=== PATIENT | female | born 1990 | race American Indian/Alaskan Native ===

== ENCOUNTER 2018-08-14 18:37 | Emergency (ER) | payer OTHER ==
[2018-08-14 18:51] VITALS: BP 123/84
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
--- NOTE | 2018-08-14 19:51 | XRay Report ---
PROCEDURE: XR TIBIA FIBULA 2V LT TECHNIQUE: Tibia fibula AP and lateral views HISTORY: leg pain COMPARISONS: FINDINGS: No fracture identified. No dislocation seen. Joint spaces are within normal limits no evidence for ef fusion at the knee IMPRESSION: Negative no acute abnormality. This document is electronically signed by Brody Cavanaugh MD., Aug 14 2018 07:49:39 PM ET
--- NOTE | 2018-08-14 19:53 | XRay Report ---
PROCEDURE: XR ANKLE 3+V LT TECHNIQUE: Left ankle 3 views HISTORY: ankle pain COMPARISONS: FINDINGS: No fracture identified. No dislocation seen. Joint spaces are within normal limits. No radiopaque for eign bodies observed. IMPRESSION: Negative ankle series. This document is electronically signed by Brody Cavanaugh MD., Aug 14 2018 07:51:23 PM ET
[2018-08-14] MEDS ORDERED: TRIPLE ANTIBIOTIC TP ONE (19:54)
[2018-08-14] MEDS ORDERED: IBUPROFEN PO ONE (19:54)
--- NOTE | 2018-08-14 19:59 | Emergency Department Report ---
HPI - General Chief Complaint: Extremity Injury, Lower Time Seen by Provider: 08/14/18 18:49 - HPI HPI: This is a 28-year-old female who presented to ED complaining of abrasions to her knees and bilateral lower leg pain after she sustained a ground-level fall last night. Patient denies hitting her head or loss of consciousness after incident. Presents that she was to get up after the fall. Patient states it is worsened with palpating her lower legs. Patient describes pain as throbbing and aching in nature. ED Past Medical Hx - Past Medical History Previous Medical History?: No - Surgical History Past Surgical History?: No - Social History Smoking Status: Current Every Day Smoker Substance Use Type: Alcohol - Medications Home Medications: Home Medications Medication Instructions Recorded Confirmed Last Taken Type Ibuprofen [Motrin 800 MG tab] 800 mg PO TID #30 tablet 08/14/18 Unknown Rx ED Review of Systems ROS: Stated complaint: BILITERAL LEG/KNEE PAIN Other details as noted in HPI Comment: All other systems reviewed and negative Physical Exam - Physical Exam Vital Signs: Vital Signs 08/14/18 18:49 Temperature 98.2 F Pulse Rate 81 Respiratory 18 Rate Blood Pressure 123/84 [Right] O2 Sat by Pulse 100 Oximetry Physical Exam: GENERAL: Alert and oriented x3, no apparent distress, Normal Gait, atraumatic. HEAD: Head is normocephalic and a-traumatic. NECK: Supple. Non edematous, No lymphadenopathy or thyromegaly. No C-spine tenderness, full range of motion EXTREMITIES/MUSCULOSKELETAL: No cyanosis, clubbing, rash, lesions or edema. Mild knee abrasion, nonbleeding.Full ROM bilaterally. Pedal Pulses 2+ bilaterally. LE 5+ strength bilaterally, NEUROLOGIC: The patient is cooperative with no focal neurologic deficits. SKIN: Warm and dry, No lesions, No ulceration or induration present. ED Course Vital Signs 08/14/18 18:49 Temperature 98.2 F Pulse Rate 81 Respiratory 18 Rate Blood Pressure 123/84 [Right] O2 Sat by Pulse 100 Oximetry ED Medical Decision Making - Radiology Data Radiology results: report reviewed, image reviewed HISTORY: ankle pain COMPARISONS: FINDINGS: No fracture identified. No dislocation seen. Joint spaces are within normal limits. No radiopaque foreign bodies observed. IMPRESSION: Negative ankle series. This document is electronically signed by Brody Murry MD., Aug 14 2018 07:51:23 PM ET Transcribed By: ANDREW Dictated By: MARILUZ MURRY MD Electronically Authenticated By: MARILUZ MURRY MD Signed Date/Time: 08/14/181952 - Medical Decision Making 28-year-old female presents to ED with myalgia is status post ground-level fall ED course: Patient received Motrin and triple antibiotic was applied to her knee abrasions Vital signs are normal patient is in no acute distress Discussed with patient follow-up with primary care physician. Discussed the patient and take medications as prescribed. Patient has no neurological deficit. Patient is alert and oriented 3 and understands all instructions given. Critical care attestation.: If time is entered above; I have spent that time in minutes in the direct care of this critically ill patient, excluding procedure time. ED Disposition Clinical Impression: Abrasion of knee, bilateral, Ankle joint pain Disposition: - TO HOME OR SELFCARE Is pt being admited?: No Does the pt Need Aspirin: No Condition: Stable Instructions: Arthralgia (ED), Musculoskeletal Pain (ED), Trigger Point Pain (ED) Additional Instructions: Make sure to follow up with the primary care physician as discussed. Take all your medications as you've been prescribed. If you have any worsening symptoms or develop new symptoms please return to ED immediately. Prescriptions: Ibuprofen [Motrin 800 MG tab] 800 mg PO TID #30 tablet Referrals: GEORGE HOPPER MD [Primary Care Provider] - 3-5 Days Forms: Work/School Release Form(ED) Time of Disposition: 20:03
== END 2018-08-14 20:39 | disposition home or self-care (01) ==
LOC: ED 18:37
DX: S80.212A Abrasion, left knee, initial encounter (principal); S80.211A Abrasion, right knee, initial encounter; F17.200 Nicotine dependence, unspecified, uncomplicated; W18.30XA Fall on same level, unspecified, initial encounter; Y93.89 Activity, other specified; Y92.89 Other specified places as the place of occurrence of the external cause; Y99.8 Other external cause status
CPT/HCPCS: 99283; A6250